=== PATIENT | female | born 1970 | race Caucasian/White ===

== ENCOUNTER 2021-06-05 21:58 | Emergency (ER) | payer SELFPAY ==
[~2021-06-05] VITALS: Ht 165.1 cm; Wt 81.6 kg
--- NOTE | 2021-06-05 22:08 | NUR ---
BIBRA 60 FOR C/O H/A AND DIZZINESS S/P SYNCOPAL EPISODE W/ FALL AND HITTING THE HEAD. PT A/OX4. DENIES PAIN AT THIS TIME. CONNECT PT TO POX AND MONITOR. TOLERATING R/A WELL. SAFETY MEASURES IN PLACE.
[2021-06-05] MEDS: IV NS 0.9% 1,000 ML BAG IV ONE (22:39)
--- NOTE | 2021-06-05 22:42 | NUR ---
BLOODWORK COLLECTED AND SENT TO LAB. RAC #[id number] ON NS
[2021-06-05 22:46] LABS: EOSINOPHILS % (AUTO) 0.9 % (0.0-6.0); HEMOGLOBIN 11.1 g/dL (11.5-14.8); MONOCYTES # (AUTO) 0.8 K/uL (0.1-1.30); MONOCYTES % (AUTO) 8.6 % (2.0-12.0); WHITE BLOOD COUNT (AUTO) 9.8 K/uL (4.3-11.0)
--- NOTE | 2021-06-05 22:49 | NUR ---
PT TAKEN TO CT
[2021-06-05 22:53] LABS: BASOPHILS % (AUTO) 0.4 % (0.0-2.0); HEMATOCRIT 35 % (33-45); LYMPHOCYTES # (AUTO) 1.6 K/uL (0.8-4.8); LYMPHOCYTES % (AUTO) 16.5 % (20.0-44.0); MEAN CORPUSCULAR HGB CONC 32 g/dl (31.0-36.0); MEAN CORPUSCULAR VOLUME 82 fL (82-100); NEUTROPHILS # (AUTO) 7.2 K/uL (1.8-8.9); NEUTROPHILS % (AUTO) 73.6 % (43.0-81.0); PLATELET COUNT (AUTO) 301 K/uL (150-450); RED BLOOD CELL COUNT(AUTO) 4.28 MIL/uL (4.0-5.2)
[2021-06-05 22:58] LABS: CALCIUM, SERUM 8.7 mg/dL (8.5-10.1); CREATININE 0.9 mg/dL (0.6-1.3); POTASSIUM 4.3 mmol/L (3.5-5.1)
[2021-06-05 23:04] LABS: ALBUMIN 3.5 g/dL (3.4-5.0); BILIRUBIN,DIRECT 0.1 mg/dL (0.0-0.2); BILIRUBIN,TOTAL 0.3 mg/dL (0.2-1.0); TOTAL PROTEIN, SERUM 7.4 g/dL (6.4-8.2)
--- NOTE | 2021-06-05 23:14 | NUR ---
COLLECTED URINE AND SENT TO LAB
[2021-06-06 00:54] LABS: LYMPHOCYTES % (MANUAL) 21 % (16-48); MONOCYTES % (MANUAL) 7 % (0-11.0); NEUTROPHILS % (MANUAL) 72 (42-76)
[2021-06-06] MEDS: ASPIRIN 81 MG TAB.CHEW PO ONE (02:37)
[2021-06-06 02:38] VITALS: BP 155/87
== END 2021-06-06 02:39 | disposition home or self-care (01) ==
LOC: ER 22:01
DX: S09.8XXA Other specified injuries of head, initial encounter (principal); R55 Syncope and collapse; R94.31 Abnormal electrocardiogram [ECG] [EKG]; R00.1 Bradycardia, unspecified; W18.09XA Striking against other object with subsequent fall, initial encounter; Y93.89 Activity, other specified; Y92.89 Other specified places as the place of occurrence of the external cause; Y99.8 Other external cause status
CPT/HCPCS: 36415 ×2; 70450; 71045; 72125; 80048; 80076; 84484 ×2; 84702; 85007; 85025; 93005 ×2; 96360; 99285; J7030